=== PATIENT | male | born 1980 | race Two or more races ===

== ENCOUNTER 2017-04-20 14:25 | Emergency (ER) | payer SELFPAY ==
[2017-04-20 14:29] VITALS: BP 130/78; PULSE 65; TEMP 97.5; BMI 28.8
[2017-04-20] MEDS ORDERED: IBUPROFEN 600 MG TABLET (FP) PO ONE ×2 (15:49→15:51)
--- NOTE | 2017-04-20 15:49 | PDOC ---
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 Pt denies trauma. no medical history or allergies. Past History - Past Medical History Allergies/Adverse Reactions: Allergies Allergy/AdvReac Type Severity Reaction Status Date / Time No Known Allergies Allergy Verified 04/20/17 14:27 Home Medications: Ambulatory Orders NK [No Known Home Medication] 04/20/17 Other medical history: DENIES. - Psycho/Social/Smoking Cessation Hx Anxiety: No Suicidal Ideation: No Smoking History: Never smoked Hx Alcohol Use: Yes Drug/Substance Use Hx: No Substance Use Type: Alcohol *Physical Exam - Vital Signs Last Vital Signs Temp Pulse Resp BP Pulse Ox 97.5 F L 65 18 130/78 99 04/20/17 14:27 04/20/17 14:27 04/20/17 14:27 04/20/17 14:27 04/20/17 14:27 - Physical Exam General Appearance: Yes: Nourished, Appropriately Dressed HEENT: positive: EOMI, KOBY Neck: negative: Tender Respiratory/Chest: positive: Lungs Clear, Normal Breath Sounds Cardiovascular: positive: Regular Rhythm, Regular Rate Gastrointestinal/Abdominal: positive: Normal Bowel Sounds, Soft Musculoskeletal: positive: Normal Inspection Extremity: positive: Normal Capillary Refill, Normal Inspection, Normal Range of Motion, Tender, Other (tendcer to lateral knee and medial knee soft tissue no bony tenderness, no swelling no redness). negative: Pedal Edema, Swelling, Calf Tenderness, Erythema, Inflammation Integumentary: positive: Normal Color, Dry, Warm Neurologic: positive: Fully Oriented, Alert, Normal Mood/Affect, Normal Response , Motor Strength 5/5 Procedures - Splinting Keith Bandage: yes, 4" ED Treatment Course - RADIOLOGY Radiology Studies Ordered: Category Date Time Status KNEE 3 POS-RIGHT [RAD] Stat Radiology 04/20/17 15:03 Completed Medical Decision Making - Medical Decision Making 04/20/17 15:45 cc: right knee pain for one week, denies trauma or fall will place an keith wrap to the knee pt is ambulatory no acute distress pt states pain with walking up steps 04/20/17 15:55 xray is negative for fracture, no swelling no calf tenderness will place keith wrap pt to follow with orthopedist if symptoms worsen 04/20/17 16:25 04/20/17 16:27 *DC/Admit/Observation/Transfer Diagnosis at time of Disposition: Right knee sprain Qualifiers: Encounter type: initial encounter Involved ligament of knee: other ligament Qualified Code(s): S83.8X1A - Sprain of other specified parts of right knee, initial encounter - Discharge Dispostion Disposition: HOME Condition at time of disposition: Good - Referrals Referrals: Juan R Khanna MD [Staff Physician] - - Patient Instructions Additional Instructions: use the keith wrap while awake remove to sleep and bathe elevate the knee and apply ice every 2hrs for 20 minutes for the next 2 days take over the counter motrin or naprosyn for pain (advil, motrin, ibuprofen) please follow with the orthopedist for follow up within the next week to 10 days
== END 2017-04-20 16:00 | disposition home or self-care (01) ==
LOC: JERFT 14:25
DX: S83.8X1A Sprain of other specified parts of right knee, initial encounter (principal); X58.XXXA Exposure to other specified factors, initial encounter; Y93.9 Activity, unspecified; Y92.9 Unspecified place or not applicable
CPT/HCPCS: 73562-TC-RT; 99281-25